=== PATIENT | female | born 1990 | race Two or more races ===

== ENCOUNTER 2018-11-03 13:00 | Inpatient (IN) | payer MEDICAID ==
[2018-11-03] MEDS ORDERED: OXYTOCIN 30 UNITS/LR 500 ML IV ×4 (13:30→16:30)
[2018-11-03] MEDS ORDERED: LIDOCAINE 1% (MPF) 30 ML INJ INJ (13:30)
[2018-11-03] MEDS ORDERED: CARBOPROST 250 MCG INJ IM ×2 (13:30→16:30)
[2018-11-03 13:44] LABS: ADD MAN DIFF? NO
[2018-11-03 13:49] LABS: BASOPHILS % 0.2 % (0.0-2.0); EOSINOPHILS # 0.1 10^3/ul (0.0-0.5); EOSINOPHILS % 0.5 % (0.0-7.0); HEMATOCRIT 35.4 % (37.0-47.0); HEMOGLOBIN 11.1 g/dl (12.0-16.0); LYMPHOCYTES # 2.8 10^3/ul (0.8-2.9); LYMPHOCYTES % 21.1 % (15.0-51.0); MEAN CORPUSCULAR HEMOGLOBIN 24.7 pg (29.0-33.0); MEAN CORPUSCULAR HGB CONC 31.4 g/dl (32.0-37.0); MEAN CORPUSCULAR VOLUME 78.8 fl (82.0-101.0); MEAN PLATELET VOLUME 10.4 fl (7.4-10.4); MONOCYTE # 0.8 10^3/ul (0.3-0.9); MONOCYTES % 6.3 % (0.0-11.0); NEUTROPHIL # 9.5 10^3/ul (1.6-7.5); NEUTROPHILS % 71.6 % (39.0-77.0); PLATELET COUNT 370 10^3/UL (140-415); RED BLOOD COUNT 4.49 10^6/ul (4.20-5.40); RED CELL DISTRIBUTION WIDTH 15.5 % (11.5-14.5)
[2018-11-03 13:49] LABS: WHITE BLOOD COUNT 13.2 10^3/ul (4.8-10.8)
[2018-11-03 14:08] LABS: INR 0.91; PROTIME 12.4 Sec (11.9-14.9)
[2018-11-03 14:09] LABS: PARTIAL THROMBOPLASTIN TIME 24.4 Sec (23.0-35.0)
[2018-11-03] MEDS: METHYLERGONOVINE 0.2 MG INJ IM (14:11)
[2018-11-03] MEDS: MISOPROSTOL 200 MCG TAB PR (14:11)
[2018-11-03] MEDS: OXYTOCIN 30 UNITS/LR 500 ML IV ×3 (14:14→16:21)
[2018-11-03] MEDS ORDERED: ONDANSETRON 4 MG INJ IV (16:30)
[2018-11-03] MEDS ORDERED: METHYLERGONOVINE 0.2 MG INJ IM (16:30)
[2018-11-03] MEDS ORDERED: SENNA/DOCUSATE NA (8.6MG/50MG) TAB PO (16:30)
[2018-11-03] MEDS ORDERED: NACL 0.9% 3 ML SYG IV (16:30)
[2018-11-03] MEDS ORDERED: MISOPROSTOL 200 MCG TAB PR (16:30)
[2018-11-03] MEDS ORDERED: OXYCODONE/ASPIRIN (4.88/325) TAB PO (16:30)
[2018-11-03] MEDS ORDERED: ZOLPIDEM 5 MG TAB PO (16:30)
[2018-11-03] MEDS: WITCH HAZEL/GLYCERIN PAD PR (17:23)
[2018-11-03] MEDS: BENZOCAINE 20% 56 ML SPRAY TOP (17:23)
[2018-11-03] MEDS: IBUPROFEN 600 MG TAB PO ×2 (17:24→23:31)
[2018-11-03] MEDS: LANOLIN HPA 1 PKT TOP (17:28)
[2018-11-03 20:56] LABS: RAPID PLASMA REAGIN NONREACTIVE (NR)
[2018-11-03] MEDS: SENNA/DOCUSATE NA (8.6MG/50MG) TAB PO (21:27)
[2018-11-03] MEDS: MAGNESIUM HYDROXIDE 30ML CUP PO (21:27)
[2018-11-04] MEDS: IBUPROFEN 600 MG TAB PO ×3 (04:59→18:08)
[2018-11-04 08:33] LABS: WHITE BLOOD COUNT 13.2 10^3/ul (4.8-10.8)
[2018-11-04 08:33] LABS: ADD MAN DIFF? NO; BASOPHILS % 0.2 % (0.0-2.0); EOSINOPHILS # 0.2 10^3/ul (0.0-0.5); EOSINOPHILS % 1.1 % (0.0-7.0); HEMATOCRIT 34.9 % (37.0-47.0); LYMPHOCYTES # 2.4 10^3/ul (0.8-2.9); LYMPHOCYTES % 18.2 % (15.0-51.0); MEAN CORPUSCULAR HEMOGLOBIN 24.9 pg (29.0-33.0); MEAN CORPUSCULAR HGB CONC 31.5 g/dl (32.0-37.0); MEAN PLATELET VOLUME 10.2 fl (7.4-10.4); MONOCYTE # 1.2 10^3/ul (0.3-0.9); MONOCYTES % 8.8 % (0.0-11.0); NEUTROPHIL # 9.4 10^3/ul (1.6-7.5); NEUTROPHILS % 71.3 % (39.0-77.0); PLATELET COUNT 370 10^3/UL (140-415); RED BLOOD COUNT 4.42 10^6/ul (4.20-5.40); RED CELL DISTRIBUTION WIDTH 16.2 % (11.5-14.5)
[2018-11-04] MEDS: MAGNESIUM HYDROXIDE 30ML CUP PO ×2 (09:44→21:00)
[2018-11-04] MEDS: SENNA/DOCUSATE NA (8.6MG/50MG) TAB PO ×2 (09:44→21:00)
[2018-11-05] MEDS: IBUPROFEN 600 MG TAB PO ×3 (00:21→12:00)
[2018-11-05] MEDS: SENNA/DOCUSATE NA (8.6MG/50MG) TAB PO (09:00)
[2018-11-05] MEDS: MAGNESIUM HYDROXIDE 30ML CUP PO (09:00)
[2018-11-05] MEDS: DIPHTH/TET/ACEL PERTUSS (ADULT) 0.5 ML VIAL IM* (10:28)
== END 2018-11-05 13:00 | disposition home or self-care (01) | DRG 807 ==
LOC: OBT 13:00 → L-D 13:00 → OBT 13:14 → L-D 13:07 → PP1 16:00
PROVIDERS: Obstetrics & Gynecology
PROC: 10E0XZZ Delivery of Products of Conception, External Approach (ICD-10-PCS; principal; 2018-11-03)
PROC: 0HQ9XZZ Repair Perineum Skin, External Approach (ICD-10-PCS; 2018-11-03)
DX: O99.214 Obesity complicating childbirth (principal); Z37.0 Single live birth; E66.9 Obesity, unspecified; O24.420 Gestational diabetes mellitus in childbirth, diet controlled; O70.9 Perineal laceration during delivery, unspecified; Z3A.37 37 weeks gestation of pregnancy; Z23 Encounter for immunization
CPT/HCPCS: 76815; 85025; 85610; 85730; 86592; 86850; 86900; 86901; 90715